=== PATIENT | female | born 1980 | race Caucasian/White ===

== ENCOUNTER 2018-06-18 22:20 | Emergency (ER) | payer MEDICAID ==
[~2018-06-18] VITALS: Ht 175.3 cm; Wt 111.1 kg
[2018-06-18 22:28] VITALS: BP_SYST 160
[2018-06-18] MEDS ORDERED: VANCOMYCIN HCL 1,000 MG in NS 250 ML IV ONE (22:45)
[2018-06-18] MEDS ORDERED: IPRATROPIUM/ALBUTEROL SULFATE 3 ML AMPUL.NEB (DUONEB) INH ONE ×2 (22:45→23:45)
[2018-06-18] MEDS ORDERED: NACL 0.9% 1,000 ML IV ONE (22:45)
[2018-06-18] MEDS ORDERED: MAGNESIUM SULFATE 50 ML IV ONE (22:45)
[2018-06-18 22:56] LABS: HEMATOCRIT 42.2 % (36-48); MEAN CORPUSCULAR HEMOGLOBIN 30 pg (27-31); MEAN CORPUSCULAR HGB CONC 33 % (32-36); MEAN CORPUSCULAR VOLUME 90 fL (79.0-98.0); PLATELET COUNT (AUTO) 267 K/uL (130-430); RED BLOOD CELL COUNT(AUTO) 4.71 MIL/uL (4.2-6.2); RED CELL DISTRIBUTION WIDTH 13.4 % (9.0-15.0); WHITE BLOOD COUNT (AUTO) 16.4 K/uL (4.8-10.8)
[2018-06-18] MEDS ORDERED: methylPREDNISolone SOD SUCC/PF 62.5 MG/ML VIAL IVP ONE (23:00)
[2018-06-18] MEDS ORDERED: VANCOMYCIN HCL 1000 MG/VIAL IV ONE (23:00)
[2018-06-18 23:10] LABS: CALCIUM 8.2 mg/dL (8.4-11.0); CREATININE 0.66 mg/dL (0.55-1.30)
[2018-06-18] MEDS ORDERED: KETOROLAC TROMETHAMINE 30 MG VIAL IVP ONE (23:15)
[2018-06-18 23:16] LABS: TOTAL BILIRUBIN 0.5 mg/dL (0.0-1.0)
[2018-06-18 23:34] LABS: BAND % (MANUAL) 5 % (0-6); BASOPHILS % (MANUAL) 0 % (0-2); EOSINOPHILS % (MANUAL) 1 % (0-7); LYMPHOCYTES % (MANUAL) 9 % (20-46); MONOCYTES % (MANUAL) 6 % (0-11)
[2018-06-19 00:28] VITALS: BP_SYST 138
== END 2018-06-19 00:28 | disposition home or self-care (01) ==
LOC: SED 22:20
DX: J45.901 Unspecified asthma with (acute) exacerbation (principal); L03.312 Cellulitis of back [any part except buttock and flank]; R03.0 Elevated blood-pressure reading, without diagnosis of hypertension
CPT/HCPCS: 36415; 71045; 80053; 81025; 85007; 85027; 87040; 94640; 96365; 96366; 96368; 96375; 99284; J1885; J2930; J3370; J3475; J7030; J7620